=== PATIENT | female | born 1965 | race Asian ===

== ENCOUNTER 2019-06-14 16:21 | Emergency (ER) | payer SELFPAY ==
[~2019-06-14] VITALS: Ht 157.5 cm; Wt 74.6 kg
[2019-06-14 16:49] VITALS: Ht 157.5 cm; Wt 74.6 kg
--- NOTE | 2019-06-14 19:39 | EN ---
Date/Time of Note Date/Time of Note DATE: 06/14/19 TIME: 19:38 ER Progress Note 54 year old female with no significant past history presents for right lower quadrant pain x2 months. She states that the pain is worsened for the past few days. Medical screening exam initiated and lab/imaging tests ordered. Patient will be seen by another provider. JESICA NARAYAN DO Jun 14, 2019 19:39
[2019-06-14] MEDS ORDERED: METR500T PO (21:01)
[2019-06-14] MEDS ORDERED: ACET-141 PO (21:01)
[2019-06-14] MEDS ORDERED: CIPR500T4 PO (21:01)
--- NOTE | 2019-06-14 21:03 | ERD ---
ER Documentation Chief Complaint Chief Complaint LEFT GROIN PAIN, NO N/V ROS All systems reviewed and are negative except as per history of present illness. Medications Home Meds Active Scripts Acetaminophen* (Acetaminophen*) 500 MG Extra Strength Tablet, 500 MG PO Q4H PRN for PAIN AND OR ELEVATED TEMP, #30 TAB Prov:JESICA NARAYAN DO 06/14/19 Metronidazole* (Flagyl*) 500 Mg Tablet, 500 MG PO Q8 for diverticulitis for 5 Days, #15 TAB Prov:JESICA NARAYAN DO 06/14/19 Ciprofloxacin Hcl* (Ciprofloxacin Hcl*) 500 Mg Tablet, 500 MG PO BID for uti for 5 Days, TAB Prov:JESICA NARAYAN DO 06/14/19 Allergies Allergies: Coded Allergies: No Known Allergy (Unverified , 06/14/19) PMhx/Soc Medical and Surgical Hx: pt denies Medical Hx, pt denies Surgical Hx Hx Alcohol Use: No Hx Substance Use: No Hx Tobacco Use: No Smoking Status: Never smoker Physical Exam Vitals Vital Signs Date Temp Pulse Resp B/P (MAP) Pulse Ox O2 O2 Flow FiO2 Time Delivery Rate 06/14/19 97.6 69 18 127/80 96 16:49 (96) Physical Exam Const: No acute distress Head: Atraumatic Eyes: Normal Conjunctiva ENT: Normal External Ears, Nose and Mouth. Neck: Full range of motion. No meningismus. Resp: Clear to auscultation bilaterally Cardio: Regular rate and rhythm, no murmurs Abd: Soft, non tender, non distended. Normal bowel sounds Skin: No petechiae or rashes Back: No midline or flank tenderness Ext: No cyanosis, or edema Neur: Awake and alert Psych: Normal Mood and Affect Result Diagram: 06/14/19200406/14/192004 Results 24 hrs Laboratory Tests Test 06/14/19 19:47 06/14/19 19:56 06/14/19 20:05 Urine Color STRAW Urine Clarity SLIGHTLY CLOUDY Urine pH 6.0 Urine Specific [place] 1.005 Urine Ketones NEGATIVE mg/dL Urine Nitrite NEGATIVE mg/dL Urine Bilirubin NEGATIVE mg/dL Urine Urobilinogen NEGATIVE mg/dL Urine Leukocyte Esterase 2+ Julien/ul Urine Microscopic RBC 1 /HPF Urine Microscopic WBC 28 /HPF Urine Squamous Epithelial Cells FEW /HPF Urine Bacteria FEW /HPF Urine Hemoglobin 2+ mg/dL Urine Glucose NEGATIVE mg/dL Urine Total Protein NEGATIVE mg/dl POC Beta HCG, Qualitative NEGATIVE White Blood Count 9.7 10^3/ul Red Blood Count 4.86 10^6/ul Hemoglobin 13.7 g/dl Hematocrit 43.0 % Mean Corpuscular Volume 88.5 fl Mean Corpuscular Hemoglobin 28.2 pg Mean Corpuscular 31.9 g/dl Hemoglobin Concent Red Cell Distribution Width 14.3 % Platelet Count 339 10^3/UL Mean Platelet Volume 9.8 fl Immature Granulocytes % 0.300 % Neutrophils % 52.6 % Lymphocytes % 39.1 % Monocytes % 5.2 % Eosinophils % 2.4 % Basophils % 0.4 % Nucleated Red Blood Cells % 0.0 /100WBC Immature Granulocytes # 0.030 10^3/ul Neutrophils # 5.1 10^3/ul Lymphocytes # 3.8 10^3/ul Monocytes # 0.5 10^3/ul Eosinophils # 0.2 10^3/ul Basophils # 0.0 10^3/ul Nucleated Red Blood Cells # 0.0 10^3/ul Sodium Level 143 mmol/L Potassium Level 4.0 mmol/L Chloride Level 104 mmol/L Carbon Dioxide Level 29 mmol/L Anion Gap 10 Blood Urea Nitrogen 13 mg/dl Creatinine 0.65 mg/dl Est Glomerular Filtrat > 60 mL/min Rate mL/min Glucose Level 128 mg/dl Calcium Level 9.9 mg/dl Total Bilirubin 0.4 mg/dl Direct Bilirubin 0.00 mg/dl Indirect Bilirubin 0.4 mg/dl Aspartate Amino 21 IU/L Transf (AST/SGOT) Alanine 17 IU/L Aminotransferase (ALT/SGPT) Alkaline Phosphatase 43 IU/L Total Protein 8.7 g/dl Albumin 4.7 g/dl Globulin 4.00 g/dl Albumin/Globulin Ratio 1.17 Lipase 64 U/L Departure Diagnosis: Primary Impression: Diverticulitis Additional Impressions: Umbilical hernia Obstruction and gangrene presence: without obstruction or gangrene Qualified Codes: K42.9 - Umbilical hernia without obstruction or gangrene UTI (urinary tract infection) Condition: Fair Patient Instructions: Understanding Diverticulosis and Diverticulitis, Understanding Urinary Tract Infections (UTIs) Referrals: [facility] YOU HAVE RECEIVED A MEDICAL SCREENING EXAM AND THE RESULTS INDICATE THAT YOU DO NOT HAVE A CONDITION THAT REQUIRES URGENT TREATMENT IN THE EMERGENCY DEPARTMENT. FURTHER EVALUATION AND TREATMENT OF YOUR CONDITION CAN WAIT UNTIL YOU ARE SEEN IN YOUR DOCTORS OFFICE WITHIN THE NEXT 1-2 DAYS. IT IS YOUR RESPONSIBILITY TO MAKE AN APPOINTMENT FOR FOLOW-UP CARE. IF YOU HAVE A PRIMARY DOCTOR --you should call your primary doctor and schedule an appointment IF YOU DO NOT HAVE A PRIMARY DOCTOR YOU CAN CALL OUR PHYSICIAN REFERRAL HOTLINE AT IF YOU CAN NOT AFFORD TO SEE A PHYSICIAN YOU CAN CHOSE FROM THE FOLLOWING [facility] CLINICS [facility] [address] [facility] [address] [facility]. [facility] [address] [facility] [address] [facility] [address] [facility] [facility]. [address] Additional Instructions: Call your primary care doctor TOMORROW for an appointment during the next 1-2 days.See the doctor sooner or return here if your condition worsens before your appointment time. JESICA NARAYAN DO Jun 14, 2019 21:03
[2019-06-14 21:10] VITALS: BP 121/75; PULSE 59; RESP 16
== END 2019-06-14 21:11 | disposition home or self-care (01) ==
LOC: FTE 16:21
DX: K57.92 Diverticulitis of intestine, part unspecified, without perforation or abscess without bleeding (principal); K42.9 Umbilical hernia without obstruction or gangrene; N39.0 Urinary tract infection, site not specified
CPT/HCPCS: 74176; 80053; 81001; 81025; 83690; 85025

== ENCOUNTER 2019-09-19 00:24 | Inpatient (IN) | payer OTHER ==
[~2019-09-19] VITALS: Ht 161.3 cm; Wt 74.3 kg
[~2019-09-19 00:24] MED LIST: ACET-141 PO; AMOX1TAB10 PO; CEPH-443 PO; CIPR500T4 PO; HYDR-4011 PO; IBUP-1542 PO; IBUP800T48 PO; ONDA4TAB8 PO
[2019-09-19 00:35] VITALS: Ht 161.3 cm; Wt 74.3 kg
[2019-09-19] MEDS ORDERED: LACTATED RINGER'S 1,000 ML IV STA (04:15)
[2019-09-19] MEDS ORDERED: FAMOTIDINE 20 MG TAB PO STA (04:15)
[2019-09-19] MEDS ORDERED: KETOROLAC 15 MG INJ IV STA (04:15)
[2019-09-19] MEDS ORDERED: ONDANSETRON 4 MG INJ IV STA ×2 (04:15→10:20)
[2019-09-19] MEDS ORDERED: AL HYDROX/MG HYDROX/SIMETH 30 ML CUP PO ONE (04:30)
[2019-09-19] MEDS ORDERED: LIDOCAINE 2% VISC 10 ML CUP PO ONE (04:30)
[2019-09-19] MEDS ORDERED: morphine 4 MG/ML VIAL IV STA (10:20)
[2019-09-19] MEDS ORDERED: ONDANSETRON 4 MG INJ IV PRN (10:30)
[2019-09-19] MEDS ORDERED: ACETAMINOPHEN 325 MG TAB PO PRN (10:30)
[2019-09-19] MEDS ORDERED: NACL 0.9% 3 ML SYG IV SCH (13:00)
[2019-09-19 13:19] VITALS: BP 152/68; PULSE 65; RESP 18
[2019-09-19 14:00] VITALS: BP 141/67; PULSE 65; RESP 18
[2019-09-19] MEDS: ONDANSETRON 4 MG INJ IV PRN ×2 (14:34→22:55)
[2019-09-19] MEDS ORDERED: IOHEXOL 300MG/ML 150 ML BTL ONE (14:49)
[2019-09-19] MEDS ORDERED: DIPHENHYDRAMINE 50 MG INJ IV PRN (16:00)
[2019-09-19] MEDS: morphine 2 MG INJ IV PRN ×2 (17:05→23:01)
[2019-09-19] MEDS: DEXTROSE 5%-0.45% NACL 1,000 ML IV SCH (17:07)
[2019-09-19] MEDS: FAMOTIDINE 20 MG INJ IV SCH ×2 (17:15→21:15)
[2019-09-19] MEDS: KETOROLAC 15 MG INJ IV PRN (19:11)
[2019-09-19 20:43] VITALS: BP 130/74; PULSE 60; RESP 16
[2019-09-20] MEDS: DEXTROSE 5%-0.45% NACL 1,000 ML IV SCH ×2 (02:10→13:56)
[2019-09-20 03:22] VITALS: BP 176/74; PULSE 65; RESP 16
[2019-09-20] MEDS ORDERED: BISACODYL 10 MG SUPP PR PRN (03:30)
[2019-09-20] MEDS: ONDANSETRON 4 MG INJ IV PRN (05:20)
[2019-09-20 08:36] VITALS: BP 138/64; PULSE 69; RESP 18
[2019-09-20] MEDS: METOCLOPRAMIDE 10 MG INJ IV PRN ×2 (08:52→14:01)
[2019-09-20] MEDS: FAMOTIDINE 20 MG INJ IV SCH ×2 (08:52→20:10)
[2019-09-20] MEDS: morphine 2 MG INJ IV PRN ×3 (09:05→23:29)
[2019-09-20] MEDS ORDERED: FLU VACC QS 2019-20 (6MOS UP) 0.5 ML SYG IM* ONE (10:00)
[2019-09-20 15:17] VITALS: BP 128/68; PULSE 70; RESP 18
[2019-09-20 20:14] VITALS: BP 141/67; PULSE 67; RESP 16
[2019-09-21] VITALS (20 sets, daily range): BP systolic 131–181; BP diastolic 65–94; PULSE 63–92; RESP 10–21
[2019-09-21] MEDS: DEXTROSE 5%-0.45% NACL 1,000 ML IV SCH ×2 (04:50→07:41)
[2019-09-21] MEDS: morphine 2 MG INJ IV PRN ×2 (05:19→16:19)
[2019-09-21] MEDS: METOCLOPRAMIDE 10 MG INJ IV PRN (05:19)
[2019-09-21] MEDS: FAMOTIDINE 20 MG INJ IV SCH ×2 (10:23→21:52)
[2019-09-21] MEDS ORDERED: LIDOCAINE 2% (SDV) 5 ML INJ ONE (17:37)
[2019-09-21] MEDS ORDERED: SUCCINYLCHOLINE CHLORIDE 100 MG/5 ML SYG IV ONE (17:37)
[2019-09-21] MEDS ORDERED: PROPOFOL 20 ML ONE (17:37)
[2019-09-21] MEDS ORDERED: ROCURONIUM 50 MG INJ ONE (17:37)
[2019-09-21] MEDS ORDERED: MIDAZOLAM 1 MG/ML 2 ML INJ ONE (17:41)
[2019-09-21] MEDS ORDERED: SEVOFLURANE 15 MIN ONE (17:53)
[2019-09-21] MEDS ORDERED: ONDANSETRON 4 MG INJ ONE (18:19)
[2019-09-21] MEDS ORDERED: CEFAZOLIN 1 GM INJ ONE (18:19)
[2019-09-21] MEDS ORDERED: metroNIDAZOLE 500 MG/NS (PMX) 100 ML IVPB ONE (18:19)
[2019-09-21] MEDS ORDERED: BUPIVACAINE 0.25%/EPI (SDV) 10 ML INJ ONE (18:25)
[2019-09-21] MEDS ORDERED: SUGAMMADEX SODIUM 200 MG/2 ML VIAL IV ONE (19:19)
[2019-09-21] MEDS ORDERED: ONDANSETRON 4 MG INJ IV PRN ×2 (19:30→20:00)
[2019-09-21] MEDS ORDERED: PHENYLephrine (100 MCG/ML) 10ML SYG ONE (19:31)
[2019-09-21] MEDS ORDERED: EPHEDrine 25 MG/5 ML SYG ONE (19:31)
[2019-09-21] MEDS ORDERED: MEPERIDINE 25 MG INJ ONE (19:35)
[2019-09-21] MEDS ORDERED: LABETALOL HCL 20MG INJ IV PRN (20:00)
[2019-09-21] MEDS ORDERED: hydrALAzine 20 MG INJ IV PRN (20:00)
[2019-09-21] MEDS ORDERED: HYDROmorphONE 1 MG/5 ML IV SYRINGE IV PRN ×3 (20:00)
[2019-09-21] MEDS ORDERED: MEPERIDINE 25 MG INJ IV ONE (20:30)
[2019-09-22 02:25] VITALS: BP 134/60; PULSE 76; RESP 18
[2019-09-22] MEDS: DEXTROSE 5%-0.45% NACL 1,000 ML IV SCH ×3 (06:34→20:49)
[2019-09-22 08:25] VITALS: BP 130/61; PULSE 81; RESP 16
[2019-09-22] MEDS: FAMOTIDINE 20 MG INJ IV SCH ×2 (08:44→20:47)
[2019-09-22] MEDS: KETOROLAC 15 MG INJ IV PRN (08:44)
[2019-09-22 14:51] VITALS: BP 160/78; PULSE 82; RESP 16
[2019-09-22 20:25] VITALS: BP 142/75; PULSE 88; RESP 20
[2019-09-23 02:30] VITALS: BP 148/73; PULSE 80; RESP 18
[2019-09-23 08:00] VITALS: BP 127/69; PULSE 80; RESP 18
[2019-09-23] MEDS: FAMOTIDINE 20 MG INJ IV SCH ×2 (08:14→20:50)
[2019-09-23] MEDS ORDERED: POTASSIUM PHOSPHATE 20 MEQ in SOD CHLORIDE 0.9% 250 ML IVPB ONE (09:00)
[2019-09-23] MEDS: DEXTROSE 5%-0.45% NACL 1,000 ML IV SCH (10:19)
[2019-09-23 15:31] VITALS: BP 129/70; PULSE 83; RESP 18
[2019-09-23 20:48] VITALS: BP 122/71; PULSE 78; RESP 17
[2019-09-24 02:00] VITALS: BP 128/77; PULSE 72; RESP 17
[2019-09-24] MEDS: DEXTROSE 5%-0.45% NACL 1,000 ML IV SCH ×2 (02:40→15:34)
[2019-09-24] MEDS: FAMOTIDINE 20 MG INJ IV SCH (08:34)
[2019-09-24 08:36] VITALS: BP 142/75; PULSE 75; RESP 17
[2019-09-24 14:22] VITALS: BP 129/67; PULSE 71; RESP 18
[2019-09-24] MEDS ORDERED: POTASSIUM CHLORIDE (SR) 20 MEQ TAB PO STA (15:11)
[2019-09-24] MEDS: AMOXICILLIN/CLAV 875 MG TAB PO SCH (17:57)
[2019-09-24 20:00] VITALS: BP 123/73; PULSE 80; RESP 18
[2019-09-24] MEDS: FAMOTIDINE 20 MG TAB PO SCH (20:46)
[2019-09-25 02:00] VITALS: BP 126/66; PULSE 72; RESP 17
[2019-09-25] MEDS: DEXTROSE 5%-0.45% NACL 1,000 ML IV SCH ×2 (04:18→08:36)
[2019-09-25 08:00] VITALS: BP 143/69; PULSE 68; RESP 16
[2019-09-25] MEDS: FAMOTIDINE 20 MG TAB PO SCH ×2 (08:36→21:31)
[2019-09-25] MEDS: AMOXICILLIN/CLAV 875 MG TAB PO SCH ×2 (08:36→21:31)
[2019-09-25 14:00] VITALS: BP 121/77; PULSE 82; RESP 16
[2019-09-25 20:42] VITALS: BP 121/58; PULSE 83; RESP 16
[2019-09-26 02:59] VITALS: BP 116/64; PULSE 66; RESP 16
[2019-09-26] MEDS: AMOXICILLIN/CLAV 875 MG TAB PO SCH (08:26)
[2019-09-26] MEDS: FAMOTIDINE 20 MG TAB PO SCH (08:28)
[2019-09-26 08:47] VITALS: BP 121/78; PULSE 83; RESP 18
[2019-09-26 14:00] VITALS: BP 119/60; PULSE 78; RESP 20
== END 2019-09-26 18:50 | disposition home or self-care (01) | DRG 336 ==
LOC: E/R 00:24 → 5EC 10:15
PROVIDERS: ADMIT Internal Medicine; ATTEND Internal Medicine
PROC: 0WUF4KZ Supplement Abdominal Wall with Nonautologous Tissue Substitute, Percutaneous Endoscopic Approach (ICD-10-PCS; 2019-09-21)
PROC: 0DNN4ZZ Release Sigmoid Colon, Percutaneous Endoscopic Approach (ICD-10-PCS; principal; 2019-09-21 15:30)
DX: K56.51 Intestinal adhesions [bands], with partial obstruction (principal); K45.0 Other specified abdominal hernia with obstruction, without gangrene; N39.0 Urinary tract infection, site not specified; K42.9 Umbilical hernia without obstruction or gangrene; E66.3 Overweight; Z68.29 Body mass index [BMI] 29.0-29.9, adult
CPT/HCPCS: 36415; 74018; 74176; 74250; 80048; 80053; 80069; 81001; 83605; 83690; 83735; 84703; 85025; 87086; 90686; 96374; 96375; 97110; 97116; 97161; 97166; 97530; 97535; C9363; J0690; J1885; J2175; J2250; J2270; J2370; J2405; J2765; J3010; J7042; J7050; J7120; Q9967